=== PATIENT | female | born 1965 | race Caucasian/White ===

== ENCOUNTER 2017-03-24 12:39 | Outpatient (CLI) | payer BC ==
[2017-03-24 13:40] LABS: ALBUMIN/GLOBULIN RATIO 1.3 (1.0-2.2); BILIRUBIN,TOTAL 0.3 mg/dL (0.2-1.0); BUN - BLOOD UREA NITROGEN 15 mg/dL (6-20); CALCIUM 9.7 mg/dL (8.5-10.3); CARBON DIOXIDE - CO2 25 mmol/L (21-32); CHLORIDE 101 mmol/L (101-111); CHOL/HDL RATIO 5.8 (<4.4); CHOLESTEROL 260 mg/dL; CREATININE 0.9 mg/dL (0.4-1.0); GFR - MDRD 66 (>89); GLUCOSE 95 mg/dL (70-100); HDL CHOLESTEROL 45 mg/dL; LDL/HDL RATIO 3.4 (<4.4); POTASSIUM 3.7 mmol/L (3.5-5.0); SODIUM 138 mmol/L (135-145); TOTAL PROTEIN 8.1 g/dL (6.7-8.2); TRIGLYCERIDES 300 mg/dL; VLDL CHOLESTEROL 60 mg/dL
[2017-03-24 13:48] LABS: HEMOGLOBIN A1C 0.6 g/dL
[2017-03-24 14:12] LABS: THYROID STIMULATING HORMONE 0.85 uIU/mL (0.34-5.60)
[2017-03-24 14:19] LABS: TOTAL T3 1.19 ng/mL (0.87-1.78)
== END 2017-03-24 12:40 | disposition home or self-care (01) ==
LOC: LAB 12:39
PROVIDERS: ATTEND Physician Assistant
DX: R73.01 Impaired fasting glucose (principal); E78.5 Hyperlipidemia, unspecified; R63.5 Abnormal weight gain
CPT/HCPCS: 80053; 80061; 83036; 84439; 84443; 84480; 84481; 84482

== ENCOUNTER 2017-06-21 21:37 | Outpatient (CLI) | payer OTHER ==
[2017-06-21 22:12] LABS: BASOPHILS # (AUTO) 0.1 10^3/uL (0.0-0.1); EOSINOPHILS % (AUTO) 0.4 %; HGB - HEMOGLOBIN 14.2 g/dL (12.0-16.0); LYMPHOCYTES # (AUTO) 3.5 10^3/uL (1.5-3.5); LYMPHOCYTES % (AUTO) 35.9 %; MEAN CORPUSCULAR HEMOGLOBIN 28.4 pg (27.0-31.0); MEAN CORPUSCULAR VOLUME 83.5 fL (81.0-99.0); MEAN PLATELET VOLUME 7.5 fL (7.9-10.8); MONOCYTES # (AUTO) 0.5 10^3/uL (0.0-1.0); MONOCYTES % (AUTO) 5.1 %; NEUTROPHILS # (AUTO) 5.6 10^3/uL (1.5-6.6); NEUTROPHILS % (AUTO) 57.6 %; PLT - PLATELET COUNT 360 10^3/uL (130-450); RED BLOOD COUNT 5.01 10^6/uL (4.20-5.40); RED CELL DISTRIBUTION WIDTH 13.6 % (12.0-15.0); WHITE BLOOD COUNT 9.7 x10^3/uL (4.8-10.8)
[2017-06-21 22:23] LABS: ALBUMIN 4.7 g/dL (3.2-5.5); ALBUMIN/GLOBULIN RATIO 1.3 (1.0-2.2); BILIRUBIN,TOTAL 0.4 mg/dL (0.2-1.0); CREATININE 0.9 mg/dL (0.4-1.0); TOTAL PROTEIN 8.3 g/dL (6.7-8.2)
[2017-06-21 23:11] LABS: THYROID STIMULATING HORMONE 3.58 uIU/mL (0.34-5.60)
[2017-06-21 23:13] LABS: FREE T4 (FREE THYROXINE) 0.9 ng/dL (0.58-1.64)
--- NOTE | 2017-06-22 00:06 | Ultrasound Preliminary Report ---
Exam: US ABDOMEN COMPLETE IMPRESSION: 1. Moderate hepatic steatosis. 2. No gallstones, cholecystitis, or biliary ductal dilation. [facility] SITE ID: [id number]
--- NOTE | 2017-06-22 00:29 | Ultrasound Report ---
EXAM: ABDOMEN ULTRASOUND EXAM DATE: 06/21/2017 11:16 PM. CLINICAL HISTORY: Right upper quadrant pain. COMPARISON: None. TECHNIQUE: Real-time scanning was performed with static images obtained. FINDINGS: Liver: Moderate increased echogenicity. Liver measures 17.2 cm in length. Portal vein: Patent with hepatopetal flow. Hepatic veins: Normal color flow. Gallbladder: Normal. No stones, wall thickening, or sonographic Thompson's sign. Biliary System: Common bile duct measures 6.9 mm. No intrahepatic or extrahepatic ductal dilatation. Pancreas: Visualized portion is unremarkable. Kidneys: Right: 10.7 cm longitudinally. Normal. No contour-deforming mass, stones, or hydronephrosis. Left: 10.3 cm longitudinally. Normal. No contour-deforming mass, stones, or hydronephrosis. Spleen: 10.6 cm. Normal in size and echotexture. Aorta and Inferior Vena Cava: Unremarkable. Other: None. IMPRESSION: 1. Moderate hepatic steatosis. 2. No gallstones, cholecystitis, or biliary ductal dilation. [facility] Referring Provider Line: [phone] SITE ID: [id number]
== END 2017-06-21 21:38 | disposition home or self-care (01) ==
LOC: DI 21:37
PROVIDERS: ATTEND Physician Assistant
DX: E07.9 Disorder of thyroid, unspecified (principal); K76.0 Fatty (change of) liver, not elsewhere classified
CPT/HCPCS: 36415; 76700; 80053; 82150; 83690; 84439; 84443; 84481; 85025

== ENCOUNTER 2017-09-07 08:00 | Outpatient (CLI) | payer OTHER ==
[2017-09-07 11:41] LABS: ALBUMIN 4.2 g/dL (3.2-5.5); ALBUMIN/GLOBULIN RATIO 1.4 (1.0-2.2); ALKALINE PHOSPHATASE 83 IU/L (42-121); ALT ALANINE AMINOTRANSFERASE 22 IU/L (10-60); AST ASPARTATE AMINOTRANSFERASE 19 IU/L (10-42); BILIRUBIN,TOTAL 0.5 mg/dL (0.2-1.0); BUN - BLOOD UREA NITROGEN 15 mg/dL (6-20); CALCIUM 9.2 mg/dL (8.5-10.3); CARBON DIOXIDE - CO2 23 mmol/L (21-32); CHLORIDE 105 mmol/L (101-111); CHOL/HDL RATIO 6.2 (<4.4); CHOLESTEROL 235 mg/dL; CREATININE 0.8 mg/dL (0.4-1.0); GFR - MDRD 76 (>89); GLUCOSE 106 mg/dL (70-100); HDL CHOLESTEROL 38 mg/dL; LDL CHOLESTEROL,CALCULATED 138 mg/dL; LDL/HDL RATIO 3.6 (<4.4); SODIUM 138 mmol/L (135-145); TOTAL PROTEIN 7.1 g/dL (6.7-8.2); VLDL CHOLESTEROL 59 mg/dL
[2017-09-07 12:04] LABS: THYROID STIMULATING HORMONE 0.71 uIU/mL (0.34-5.60)
[2017-09-07 12:06] LABS: FREE T4 (FREE THYROXINE) 0.79 ng/dL (0.58-1.64)
== END 2017-09-07 08:01 | disposition home or self-care (01) ==
LOC: LAB.F 08:00
PROVIDERS: ATTEND Physician Assistant
DX: K76.0 Fatty (change of) liver, not elsewhere classified (principal); E07.9 Disorder of thyroid, unspecified; E78.5 Hyperlipidemia, unspecified
CPT/HCPCS: 36415; 80053; 80061; 83721; 84439; 84443; 84481

== ENCOUNTER 2018-04-10 11:53 | Emergency (ER) | payer OTHER ==
--- NOTE | 2018-04-10 12:59 | ED Physician Documentation ---
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 - Present Medications Home Medications: Ambulatory Orders Medication Instructions Recorded Confirmed Alprazolam [Xanax] 2 mg PO ONCE PRN 06/28/14 06/28/14 HYDROcod/ACETAM 5/325 [[place] 5/325] 2 tab PO DAILY 06/28/14 06/28/14 Venlafaxine ER [Effexor ER] 75 mg PO DAILY 06/28/14 06/28/14 traZODone [Desyrel] 50 mg PO DAILY 06/28/14 06/28/14 Baclofen 5 mg 04/10/18 SUMAtriptan [Imitrex] 25 mg PO ONCE 04/10/18 04/10/18 - Allergies Allergies/Adverse Reactions: Allergies Allergy/AdvReac Type Severity Reaction Status Date / Time erythromycin lactobionate * Allergy Hives Verified 04/10/18 11:58 [From Erythrocin] - Social History Does the pt smoke?: No Smoking Status: Never smoker Does the pt drink ETOH?: No Does the pt have substance abuse?: No - Immunizations Immunizations are current?: Yes Results - Vitals Vitals: Vital Signs - 24 hr 04/10/18 11:55 Temperature 36.1 C L Heart Rate 88 Respiratory 18 Rate Blood Pressure 155/89 H O2 Saturation 100 Oxygen O2 Source Room air - Rads (name of study) foot Radiology: See rad report (normal) ankle Radiology: See rad report (osteochondral dz involving talar dome) Departure - Departure Disposition: Home, Self Care Clinical Impression: Osteochondral defect of talus Condition: Good Follow-Up: [facility] [Provider Group] Comments: The xray shows you have a damaged region of talus bone called osteochondrosis. This can occur when an area of bone with poor blood flow is damaged and thus doesn't heal well. Recommend you use crutches and not bear weight for now Please follow up with orthopedics for further evaluation and management Tylenol and motrin as needed for the pain Forms: Activity restrictions
--- NOTE | 2018-04-10 13:36 | XRAY Report ---
Reason: lateral pain Procedure Date: 04/10/2018 Accession Number: [id number] / [id number] Procedure: XR - Ankle 3 View LT CPT Code: FULL RESULT: EXAM: LEFT ANKLE RADIOGRAPHY EXAM DATE: 04/10/2018 01:15 PM. CLINICAL HISTORY: Chronic lateral left ankle and foot pain. COMPARISON: None. TECHNIQUE: 3 views. FINDINGS: Bones: 9 x 7 mm sub-cortical lucency with a thin sclerotic rim involving the medial-most aspect of the talar dome. The thin overlying cortex remains intact. The rest of the trabecular and cortical patterns are unremarkable. Joints: Normal. No effusion. No subluxations. The ankle mortise is normally aligned. Soft Tissues: Normal. No soft tissue swelling. IMPRESSION: Osteochondral disease involving the talar dome. [facility]
--- NOTE | 2018-04-10 13:38 | XRAY Report ---
Reason: lateral pain Procedure Date: 04/10/2018 Accession Number: [id number] / [id number] Procedure: XR - Foot 3 View LT CPT Code: FULL RESULT: EXAM: LEFT FOOT RADIOGRAPHY EXAM DATE: 04/10/2018 01:27 PM. CLINICAL HISTORY: Chronic lateral left foot and ankle pain. COMPARISON: None. TECHNIQUE: 3 views. FINDINGS: Bones: Limited visualization of the osteochondral disease involving the talar dome is discussed on the dedicated left ankle report. Trabecular and cortical patterns otherwise unremarkable. Joints: Normal. No subluxations. Soft Tissues: Normal. No soft tissue swelling. IMPRESSION: Normal foot radiography. [facility]
[2018-04-10 15:26] VITALS: BP 128/96
== END 2018-04-10 15:25 | disposition home or self-care (01) ==
LOC: ED 11:53
DX: M93.272 Osteochondritis dissecans, left ankle and joints of left foot (principal)
CPT/HCPCS: 99282; 99283

== ENCOUNTER 2018-12-04 07:41 | Outpatient (CLI) | payer OTHER ==
--- NOTE | 2018-12-06 10:25 | Mammography Report ---
Reason: SCREENING FOR MALIGNANT NEOPLASM OF BREAST Procedure Date: 12/04/2018 Accession Number: [id number] / [id number] Procedure: DON - Screening Mammo w/Stone CPT Code: FULL RESULT: EXAM: Screening Mammo w/Stone DATE: 12/04/2018 8:28 AM CLINICAL HISTORY: Screening encounter. No reported risk factors. TECHNIQUE: (B) - Bilateral CC and MLO views were obtained. COMPARISON: New baseline imaging. PARENCHYMAL PATTERN: (A) - The breast(s) demonstrate(s) scattered fibroglandular densities. FINDINGS: There are no suspicious masses, calcifications, or areas of distortion. IMPRESSION: Negative examination. BI-RADS category 1. RECOMMENDATION: (ANNUAL) - Recommend routine annual screening mammography. BI-RADS CATEGORY: (1) - Negative. STANDARD QUALIFYING STATEMENTS: 1. This examination was not reviewed with the aid of Computer-Aided Detection (CAD). 2. A negative or benign imaging report should not preclude biopsy if clinically suspicious findings are present. 3. Dense breasts may obscure an underlying neoplasm. 4. This examination was reviewed with the aid of 3D breast imaging (tomosynthesis).
== END 2018-12-04 07:42 | disposition home or self-care (01) ==
LOC: DI 07:41
PROVIDERS: ATTEND Family Medicine
DX: Z12.31 Encounter for screening mammogram for malignant neoplasm of breast (principal)
CPT/HCPCS: 77063; 77067

== ENCOUNTER 2020-01-27 12:32 | Outpatient (CLI) | payer OTHER | END 2020-01-27 12:33 | disposition EMS.NT | LOC: EMS 12:32 | PROVIDERS: ATTEND Surgery | DX: R07.9 Chest pain, unspecified (principal) ==

== ENCOUNTER 2020-10-13 09:37 | Day surgery (SDC) | payer OTHER ==
[2020-10-13] MEDS ORDERED: LACTATED RINGERS 1,000 ML IV ONE ×2 (10:06→12:34)
--- NOTE | 2020-10-13 12:29 | ANESTHESIA ---
Pre-Anesthesia VS, & Labs - Diagnosis screening - Procedure colonoscopy Vital Signs: Temp Pulse Resp BP Pulse Ox 36.1 C L 97 16 145/88 H 94 10/13/20 09:47 10/13/20 09:47 10/13/20 09:47 10/13/20 09:47 10/13/20 09:47 Height: 5 ft 2 in Weight (kg): 109.3 kg Body Mass Index: 44.0 BMI Classification: Morbidly Obese - NPO >8 hours - Is Patient ?: No - Lab Results Lab results reviewed: Yes Home Medications and Allergies Alprazolam [Xanax] 2 mg PO ONCE PRN 06/28/14 HYDROcod/ACETAM 5/325 [[place] 5/325] 2 tab PO DAILY 06/28/14 Venlafaxine ER [Effexor ER] 75 mg PO DAILY 06/28/14 traZODone [Desyrel] 50 mg PO DAILY 06/28/14 Baclofen 5 mg 04/10/18 SUMAtriptan [Imitrex] 25 mg PO ONCE 04/10/18 Allergies/Adverse Reactions: Allergies Allergy/AdvReac Type Severity Reaction Status Date / Time erythromycin lactobionate * Allergy Hives Verified 04/10/18 11:58 [From Erythrocin] Anes History & Medical History - Anesthetic History Anesthesia Complications: reports: No previous complications Family history of Anesthesia Complications: Denies Family history of Malignant Hyperthermia: Denies - Medical History Pulmonary: reports: Sleep apnea Musculoskeletal: reports: Fibromyalgia Smoking Status: Never smoker - Surgical History Gynecologic: reports: Hysterectomy Exam General: Alert, Oriented x3, Cooperative Dental: WNL Mouth Openin Fingerbreadth Neck Mobility: Normal Mallampati classification: II Thyromental Distance: 4-6 cm Respiratory: Lungs clear, Normal breath sounds, No respiratory distress Cardiovascular: Regular rate Plan Anesthesia Type: Total IV Consent for Procedure(s) Verified and Reviewed: Yes Code Status: Attempt Resuscitation ASA classification: 3-Severe systemic disease Is this case an emergency?: No
[2020-10-13] MEDS ORDERED: MIDAZOLAM 2 MG/2 ML VIAL ONE (12:30)
[2020-10-13] MEDS ORDERED: fentaNYL 100 MCG/2 ML VIAL ONE (12:31)
[2020-10-13] MEDS ORDERED: PROPOFOL 200 MG/20 ML VIAL IVP ONE (12:32)
[2020-10-13] MEDS ORDERED: LIDOCAINE-MPF 2% 5 ML VIAL ONE (12:32)
[2020-10-13] MEDS ORDERED: LACTATED RINGERS 500 ML IV ONE (13:11)
--- NOTE | 2020-10-13 13:18 | ANESTHESIA POST OP EVALUATION ---
Anesthesia Post Eval - Post Anesthesia Eval Vitals: Last Vital Signs Temp 36.7 C 10/13/20 13:12 Pulse 81 10/13/20 13:12 Resp 16 10/13/20 09:47 BP 95/48 L 10/13/20 13:12 Pulse Ox 93 10/13/20 13:12 CV Function Including HR & BP: Stable Pain Control: Satisfactory Nausea & Vomiting: Negative Mental Status: Baseline Respiratory Status: Airway Patent Hydration Status: Satisfactory Anesthesia Complications: None
[2020-10-13 14:07] VITALS: BP 120/70
== END 2020-10-13 09:38 | disposition home or self-care (01) ==
LOC: SDS 09:37
PROVIDERS: ATTEND Surgery
DX: K57.30 Diverticulosis of large intestine without perforation or abscess without bleeding (principal); K62.5 Hemorrhage of anus and rectum; K59.09 Other constipation; E66.01 Morbid (severe) obesity due to excess calories; Z68.41 Body mass index [BMI] 40.0-44.9, adult; G47.30 Sleep apnea, unspecified; M79.7 Fibromyalgia; G40.909 Epilepsy, unspecified, not intractable, without status epilepticus; G43.909 Migraine, unspecified, not intractable, without status migrainosus; Z87.891 Personal history of nicotine dependence; Z90.710 Acquired absence of both cervix and uterus
CPT/HCPCS: 45378; J7120

== ENCOUNTER 2022-11-27 10:40 | Outpatient (CLI) | payer OTHER ==
--- NOTE | 2022-11-27 16:01 | XRAY Report ---
PROCEDURE: Tib/Fib LT INDICATIONS: PAIN IN LEFT LOWER LEG TECHNIQUE: 2 views of the tibia and fibula were acquired. COMPARISON: None. FINDINGS: Bones: No fractures or dislocations. No suspicious bony lesions. Soft tissues: No suspicious soft tissue calcifications or masses. IMPRESSION: No visualized acute fracture or dislocation. However, occult injury cannot be excluded. Recommend gordy rt interval imaging follow-up in 7-10 days as clinically indicated for additional evaluation. Reviewed by: Tiffanie Howard MD on 11/27/2022 4:00 PM PDT Approved by: Tiffanie Howard MD on 11/27/2022 4:00 PM PDT Station ID: [id number]
== END 2022-11-27 10:41 | disposition home or self-care (01) ==
LOC: DI.S 10:40
PROVIDERS: ATTEND Internal Medicine
DX: M79.662 Pain in left lower leg (principal)

== ENCOUNTER 2023-02-08 12:57 | Outpatient (CLI) | payer OTHER | END 2023-02-08 12:58 | disposition home or self-care (01) | LOC: NS 12:57 | PROVIDERS: ATTEND Internal Medicine | DX: Z71.3 Dietary counseling and surveillance (principal); E66.01 Morbid (severe) obesity due to excess calories; Z68.42 Body mass index [BMI] 45.0-49.9, adult | CPT/HCPCS: 97802 ==

== ENCOUNTER 2023-04-11 14:59 | Outpatient (CLI) | payer OTHER ==
--- NOTE | 2023-04-12 09:34 | Mammography Report ---
BILATERAL DIGITAL SCREENING MAMMOGRAM 3D/2D: 04/11/2023 CLINICAL: Routine screening. Comparison is made to exam dated: 12/04/2018 mammogram - [facility]. There are scattered areas of fibroglandular density in both breasts (category b / 25%-50% glandular t issue). No significant masses, calcifications, or other findings are seen in either breast. There has been no significant interval change. IMPRESSION: NEGATIVE There is no mammographic evidence of malignancy. A 1 year screening mammogram is recommended. Based on the Tyrer Cuzick model (a risk assessment model) the patients lifetime risk is 6.7% and her 10 year risk is 2.1%. According to the ACR, ACS, and NCCN guidelines, an annual breast MRI exam mason g with mammogram is recommended if the patients lifetime risk is 20% or greater. This exam was interpreted at Station ID: [id number]. NOTE: For mammograms, a report in lay terms will be sent to the patient. Approximately 15% of breast malignancies will not be visualized mammographically. In the management of a palpable breast mass, a negative mammogram must not discourage biopsy of a clinically suspicious lesion. Electronically Signed By: Maykel [email or web address]/[email or web address]:04/12/2023 09:00:56 letter sent: No_Letter ACR BI-RADS Category 1: Negative 3341F PARENCHYMAL PATTERN: (A) - The breast(s) demonstrate(s) scattered fibroglandular densities. BI-RADS CATEGORY: (1) - 1 Mammogram [id number] 1 year screening LATERALITY: (B)
== END 2023-04-11 15:00 | disposition home or self-care (01) ==
LOC: DI.S 14:59
PROVIDERS: ATTEND Internal Medicine
DX: Z12.31 Encounter for screening mammogram for malignant neoplasm of breast (principal); R92.323 Mammographic fibroglandular density, bilateral breasts